=== PATIENT | male | born 1950 | race Hispanic/Latino ===

== ENCOUNTER 2019-03-11 20:09 | Emergency (ER) | payer SELFPAY ==
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
[2019-03-12] MEDS ORDERED: Ibuprofen 800 MG TAB ONE
== END 2019-03-12 00:10 | disposition home or self-care (01) ==
LOC: NAV ERS 20:09
DX: S13.9XXA Sprain of joints and ligaments of unspecified parts of neck, initial encounter (principal); S29.011A Strain of muscle and tendon of front wall of thorax, initial encounter; E11.9 Type 2 diabetes mellitus without complications; V49.9XXA Car occupant (driver) (passenger) injured in unspecified traffic accident, initial encounter
CPT/HCPCS: 70450; 72125; 93005